=== PATIENT | male | born 1995 | race Caucasian/White ===

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

== ENCOUNTER 2018-03-13 21:56 | Emergency (ER) | payer OTHER ==
[2018-03-14] MEDS ORDERED: Ondansetron INJ* 2 MG/ML VIAL IV ONE (00:25)
[2018-03-14] MEDS ORDERED: NS 0.9% 1000 ML* 2,000 ML IV ONE (00:25)
[2018-03-14 00:27] LABS: ABS Basophils 0 10^3/ul (0-0.2); ABS Eosinophils 0 10^3/ul (0-0.6); ABS Lymphocytes 0.4 10^3/ul (1.0-4.8); ABS Monocytes 0.6 10^3/ul (0-0.8); ABS Neutrophils 10.9 10^3/ul (1.5-7.7); ABS Nucleated RBC 0.1 10^3/ul; Eosinophil % 0.1 % (0-6); Hematocrit 49 % (42-52); Hemoglobin 17.2 g/dl (14.0-18.0); Lymphocyte % 3.4 % (25-47); Mean Corpuscular HGB Conc 35 g/dl (31-36); Mean Corpuscular Hemoglobin 31 pg (27-31); Mean Corpuscular Volume 89 fL (80-94); Mean Platelet Volume 7.9 um3 (7.4-10.4); Nucleated Red Blood Cells % 0.4; Platelet Count 208 10^3/ul (150-450); Red Blood Count 5.57 10^6/ul (4.00-5.40); Red Cell Distribution Width 13 % (10.5-15)
[2018-03-14] MEDS ORDERED: Ketorolac INJ* 30 MG/ML 1 ML VIAL IV PUSH ONE (00:38)
--- NOTE | 2018-03-14 00:48 | ED ---
GI/ HPI - HPI Summary HPI Summary: 22-year-old male presents with nausea vomiting diarrhea today. He states that after dinner he developed some bowel pain. the pain is a 3 out of 10 and is generalized. He then had 3 episodes of vomiting. He states has had multiple episodes of diarrhea. No blood in stool. He did not eat anything different. Has had similar symptoms years ago. No one else is sick. He denies any fevers. No cough. No sore throat. No urinary symptoms. No previous belly surgeries. he admits to weakness and dizziness. has history of low blood pressure. has fam hx of diverticulitis. has not been on antibiotic recently. - History of Current Complaint Chief Complaint: EDNauseaVomitDiarrh Time Seen by Provider: 03/14/18 00:25 Stated Complaint: VOMITING/DIARRHEA Pain Intensity: 4 - Additional Pertinent History Primary Care Physician: SURESH - Allergy/Home Medications Allergies/Adverse Reactions: Allergies Allergy/AdvReac Type Severity Reaction Status Date / Time No Known Allergies Allergy Verified 07/19/16 14:08 PMH/Surg Hx/FS Hx/Imm Hx Endocrine/Hematology History: Denies: Hx Anticoagulant Therapy Respiratory History: Reports: Hx Asthma - exercise induced, Hx Pneumonia Musculoskeletal History: Reports: Hx Orthopedic Injury - R distal femur fx, repair; chronic achilles tendon micro-tears;tendonitis Neurological History: Comment Only: Other Neuro Impairments/Disorders - concussion, but no LOC - Surgical History Surgery Procedure, Year, and Place: Femur repair Hx Anesthesia Reactions: No - Immunization History Date of Tetanus Vaccine: UTD Date of Influenza Vaccine: never Infectious Disease History: No Infectious Disease History: Denies: Traveled Outside the [place] in Last 30 Days - Family History Known Family History: Positive: Hypertension - Father's side, Diabetes - Grandparents, Other - Appendicitis (father) - Social History Alcohol Use: None Substance Use Type: Reports: None Hx Tobacco Use: No Smoking Status (MU): Never Smoked Tobacco Review of Systems Negative: Fever Negative: Chest Pain Negative: Shortness Of Breath Positive: Abdominal Pain, Vomiting, Diarrhea, Nausea All Other Systems Reviewed And Are Negative: Yes Physical Exam Triage Information Reviewed: Yes Vital Signs On Initial Exam: Initial Vitals Temp Pulse Resp BP Pulse Ox 98.7 F 98 20 91/57 100 03/13/18 22:22 03/13/18 22:22 03/13/18 22:22 03/13/18 22:22 03/13/18 22:22 Vital Signs Reviewed: Yes Appearance: Positive: Well-Appearing Skin: Positive: Warm, Dry Head/Face: Positive: Normal Head/Face Inspection Eyes: Positive: Normal, Conjunctiva Clear ENT: Positive: Pharynx normal Respiratory/Lung Sounds: Positive: Clear to Auscultation, Breath Sounds Present Cardiovascular: Positive: Normal, RRR Abdomen Description: Positive: Soft, Other: - mild diffuse abd tenderness Bowel Sounds: Positive: Present Musculoskeletal: Positive: Normal Neurological: Positive: Normal Psychiatric: Positive: Normal Diagnostics - Vital Signs Vital Signs Temp Pulse Resp BP Pulse Ox 03/13/18 22:22 98.7 F 98 20 91/57 100 - Laboratory Lab Results: Lab Results 03/13/18 03/13/18 Range/Units 23:59 23:59 WBC 12.0 H (3.5-10.8) 10^3/ul RBC 5.57 H (4.00-5.40) 10^6/ul Hgb 17.2 (14.0-18.0) g/dl Hct 49 (42-52) % MCV 89 (80-94) fL MCH 31 (27-31) pg MCHC 35 (31-36) g/dl RDW 13 (10.5-15) % Plt Count 208 (150-450) 10^3/ul MPV 7.9 (7.4-10.4) um3 Neut % (Auto) 91.0 H (38-83) % Lymph % (Auto) 3.4 L (25-47) % Hunt % (Auto) 5.3 (0-7) % Eos % (Auto) 0.1 (0-6) % Baso % (Auto) 0.2 (0-2) % Absolute Neuts (auto) 10.9 H (1.5-7.7) 10^3/ul Absolute Lymphs (auto) 0.4 L (1.0-4.8) 10^3/ul Absolute Monos (auto) 0.6 (0-0.8) 10^3/ul Absolute Eos (auto) 0 (0-0.6) 10^3/ul Absolute Basos (auto) 0 (0-0.2) 10^3/ul Absolute Nucleated RBC 0.1 10^3/ul Nucleated RBC % 0.4 Sodium Cancelled Potassium Cancelled Chloride Cancelled Carbon Dioxide Cancelled Anion Gap Cancelled BUN Cancelled Creatinine Cancelled Est GFR ( Amer) Cancelled Est GFR (Non-Af Amer) Cancelled BUN/Creatinine Ratio Cancelled Glucose Cancelled Calcium Cancelled Total Bilirubin Cancelled AST Cancelled ALT Cancelled Alkaline Phosphatase Cancelled C-Reactive Protein Cancelled Total Protein Cancelled Albumin Cancelled Globulin Cancelled Albumin/Globulin Ratio Cancelled Lipase Cancelled Result Diagrams: 03/13/18 23:59 03/14/18 00:01 Lab Statement: Any lab studies that have been ordered have been reviewed, and results considered in the medical decision making process. Re-Evaluation - Re-Evaluation First Eval Re-Evaluation Time: 01:30 Change: Improved Comment: feeling better, less dizzy. no longer nauseous Second Eval Re-Evaluation Time: 01:48 Change: Unchanged Comment: says that he still feels weak, tolerated PO water Third Eval Re-Evaluation Time: 02:29 Change: Improved Comment: tolerated crackers and ambulated to bathroom without difficulty. discussed will do one more liter and discharge home. GIGU Course/Dx - Course Course Of Treatment: 22-year-old male presents with nausea vomiting diarrhea today. He states that after dinner he developed some bowel pain. the pain is a 3 out of 10 and is generalized. He then had 3 episodes of vomiting. He states has had multiple episodes of diarrhea. No blood in stool. He did not eat anything different. Has had similar symptoms years ago. No one else is sick. He denies any fevers. No cough. No sore throat. No urinary symptoms. No previous belly surgeries. he admits to weakness and dizziness. has history of low blood pressure. has fam hx of diverticulitis. has not on antibiotic recently. On exam has mild tenderness abd diffusely. wbc 12. electrolytes normal. gave zofran and 2 liters of fluids and feeling better. will discharge with zofran. patient understand and agrees with plan. - Diagnoses Differential Diagnoses - Male: Gastroenteritis (Bacterial), Gastroenteritis ( Viral), Urinary Tract Infection Provider Diagnoses: Nausea vomiting and diarrhea Discharge - Sign-Out/Discharge Documenting (check all that apply): Patient Departure - Discharge Plan Condition: Good Disposition: HOME Prescriptions: Ondansetron ODT TAB* [Zofran 4 MG Odt TAB*] 4 mg PO Q6H PRN #20 tab.odt PRN Reason: Nausea Patient Education Materials: Acute Nausea and Vomiting (ED) Referrals: No Primary Care Phys,NOPCP [Primary Care Provider] - Additional Instructions: Can take Zofran every 6 hours as needed for nausea Drink small amounts of fluid as tolerated When able to eat follow BRAT diet: Bananas, rice, applesauce, toast Take ibuprofen or Tylenol for pain as needed every 6 hours Follow up with primary within 5 days Return to ED if develop fever that does not respond to Tylenol or ibuprofen, severe abdominal pain, or any new or worsening symptoms - Billing Disposition and Condition Condition: GOOD Disposition: Home
[2018-03-14 01:02] LABS: EGFR Non-African American 102.3 (>60)
[2018-03-14] MEDS ORDERED: NS 0.9% 1000 ML* 1,000 ML IV ONE (01:48)
[2018-03-14] MEDS ORDERED: O ndansetron ODT 4MG 5TAB PRPK 4 MG PAK PO ONE (02:18)
[2018-03-14 02:21] LABS: Urine Appearance Cloudy; Urine Blood Negative (Negative); Urine Color Yellow; Urine Ketones 1+ (Negative); Urine Protein Negative (Negative); Urine Urobilinogen Negative (Negative)
[2018-03-14] MEDS ORDERED: Ondansetron ODT TAB* 4 MG ONE (02:51)
[2018-03-14 03:55] VITALS: BP 124/49
== END 2018-03-14 03:55 | disposition home or self-care (01) ==
LOC: ED 21:56
DX: R11.2 Nausea with vomiting, unspecified (principal); R19.7 Diarrhea, unspecified; R10.9 Unspecified abdominal pain
CPT/HCPCS: 36415; 80053; 81003; 83690; 85025; 86140; 87045; 87046; 87899; 96361; 96374; 96375; 99283; A9270-GY; J1885; J2405